=== PATIENT | male | born 2000 | race Caucasian/White ===

== ENCOUNTER 2021-06-23 11:59 | Emergency (ER) | payer SELFPAY ==
[~2021-06-23] VITALS: Ht 175.3 cm; Wt 195.0 kg
[2021-06-23 12:07] VITALS: BP 109/80
== END 2021-06-23 14:39 | disposition home or self-care (01) ==
LOC: ER2 11:59
DX: Z20.822 Contact with and (suspected) exposure to COVID-19 (principal); Z88.0 Allergy status to penicillin
CPT/HCPCS: 71045; 87426; 99284